=== PATIENT | female | born 1990 | race Two or more races ===

== ENCOUNTER 2025-06-15 13:59 | Emergency (ER) | payer OTHER ==
[~2025-06-15] VITALS: Ht 157.5 cm; Wt 68.2 kg
[2025-06-15 14:07] VITALS: BP 147/74; PULSE 70; RESP 18; TEMP 98.2; O2SAT 100
[2025-06-15] MEDS: IBUPROFEN 600 MG TABLET PO ONE (15:40)
[2025-06-15] MEDS ORDERED: ACET-2247 PO (15:42)
[2025-06-15] MEDS ORDERED: IBUP-1492 PO (15:42)
== END 2025-06-15 16:41 | disposition home or self-care (01) ==
LOC: EMS 13:59
DX: M70.21 Olecranon bursitis, right elbow (principal); Y93.89 Activity, other specified
CPT/HCPCS: 99283